=== PATIENT | female | born 1980 | race Caucasian/White ===

== ENCOUNTER 2020-04-30 19:36 | Emergency (ER) | payer MEDICAID ==
[~2020-04-30] VITALS: Ht 165.1 cm; Wt 69.0 kg
[2020-04-30] MEDS ORDERED: LORazepam 0.5 MG tablet PO PRN (20:05)
[2020-04-30 20:35] LABS: BASOPHILS % (AUTO) 0.4 % (0-1); EOSINOPHILS # (AUTO) 0.1 X10'3 (0-0.9); EOSINOPHILS % (AUTO) 1.2 % (0-6); HEMATOCRIT 43.4 % (35.0-45.0); HEMOGLOBIN 14.7 g/dl (12.0-16.0); LYMPHOCYTES % (AUTO) 25.4 % (21-51); MEAN CORPUSCULAR HEMOGLOBIN 30.1 PG (27.0-31.0); MEAN CORPUSCULAR HGB CONC 33.9 g/dL (33.0-36.5); MEAN CORPUSCULAR VOLUME 88.6 FL (78-98); MEAN PLATELET VOLUME 7.7 FL (7.4-10.4); MONOCYTES # (AUTO) 0.3 X10'3 (0-0.9); NEUTROPHILS # (AUTO) 5.4 X10'3 (1.8-7.7); PLATELET COUNT 260 X10'3 (140-440); WHITE BLOOD COUNT 7.8 X10'3 (4.5-11.0)
[2020-04-30 20:36] LABS: URINE HCG NEGATIVE (NEG)
[2020-04-30 20:43] LABS: URINE AMPHETAMINE SCREEN NEGATIVE (Neg); URINE BARBITUATE SCREEN NEGATIVE (Neg); URINE BENZODIAZEPINES SCREEN NEGATIVE (Neg); URINE CANNABINOID SCREEN NEGATIVE (Neg); URINE COCAINE SCREEN NEGATIVE (Neg); URINE METHADONE SCREEN NEGATIVE (Neg); URINE OPIATE SCREEN NEGATIVE (Neg); URINE PHENCYCLIDINE SCREEN NEGATIVE (Neg)
--- NOTE | 2020-04-30 20:43 | NUR ---
pt moved to overflow bed 24. pt ambulated with a steady gate.
[2020-04-30 20:50] LABS: ALANINE AMINOTRANSFERASE 26 U/L (12-78); ALBUMIN 4.2 G/DL (3.4-5.0); ALBUMIN/GLOBULIN RATIO 1.1 (1.1-1.5); ALKALINE PHOSPHATASE 85 IU/L (46-116); ANION GAP 8 (8-16); ASPARTATE AMINO TRANSFERASE 18 U/L (10-37); BILIRUBIN,TOTAL 0.5 MG/DL (0.1-1.0); BLOOD UREA NITROGEN 11 MG/DL (7-18); CALCIUM 8.8 MG/DL (8.5-10.1); CHLORIDE 107 MMOL/L (99-107); CREATININE 0.58 MG/DL (0.40-0.90); GLUCOSE 86 MG/DL (70-104); SODIUM 141 MMOL/L (135-145); TOTAL CARBON DIOXIDE 26.2 MMOL/L (24-32); TOTAL PROTEIN 8.1 G/DL (6.4-8.2); eGFR > 90 ML/MIN
[2020-04-30] MEDS ORDERED: ESCI20TA25 PO (20:50)
[2020-04-30 20:58] LABS: ETHANOL 0.096 GM/DL (0.0-0.010)
[2020-04-30] MEDS ORDERED: ESCITALOPRAM OXALATE 5 MG TABLET PO SCH (22:57)
--- NOTE | 2020-04-30 23:21 | NUR ---
Pt was evaluated for SI. Pt stated that her committed suicide 2 weeks ago by gunshot to chest. Pt has been "losing it ever since." Pt states that she is a good mother and has "3 good reasons to live (her daughters), but hasn't felt like living." She states that she is scared because she has never felt like this before and doesn't understand why she wants to so badly. Pt is not manic, nor psychotic. Pt was overheard on the phone stating that "if I was truthful, they'll keep me for over 72 hours."
--- NOTE | 2020-04-30 23:21 | NUR ---
pt is sleeping, was easily arousable for hs meds. pt is cooperative and polite.
--- NOTE | 2020-05-01 01:09 | NUR ---
pt is sleeping, no s/s of distress noted.
--- NOTE | 2020-05-01 02:09 | NUR ---
packet sent to [place] [facility]
--- NOTE | 2020-05-01 02:17 | NUR ---
apd called to report that pt has firearms in her home that they would like to remove. police are not able to remove firearms until 8pm on monday and would like to be notified if pt is released prior to that.
--- NOTE | 2020-05-01 02:41 | NUR ---
pt continues to sleep, no s/s of distress noted.
--- NOTE | 2020-05-01 04:52 | NUR ---
pt continues to sleep, no s/s of distress noted.
--- NOTE | 2020-05-01 07:00 | NUR ---
Resting in bed
--- NOTE | 2020-05-01 08:00 | NUR ---
Resting in bed
--- NOTE | 2020-05-01 08:30 | NUR ---
PT TEARFUL, STATING "TODAY IS ONE MONTH TO THE DAY THAT MY COMMITED SUICIDE. I WANT TO GO HOME AND EVERYTING TO BE NORMAL AGAIN". PT STATES "LOGICALLY THIS SHOULDN'T HAVE HAPPENED BUT MY EMOTIONS JUST WERE NOT WHERE THEY NEEDED TO BE. YESTERDAY WAS A HARD DAY AND TODAY IS ANOTHER HARD DAY".
--- NOTE | 2020-05-01 09:00 | NUR ---
Resting in bed
--- NOTE | 2020-05-01 10:00 | NUR ---
Resting in bed
[2020-05-01] MEDS ORDERED: LORazepam 1 MG tablet PO PRN (10:10)
--- NOTE | 2020-05-01 11:00 | NUR ---
Resting in bed
--- NOTE | 2020-05-01 12:00 | NUR ---
Resting in bed
--- NOTE | 2020-05-01 13:00 | NUR ---
Resting in bed
--- NOTE | 2020-05-01 13:20 | NUR ---
Accepted to [facility] at 1300 by Damon viveros p.u. [id number].
--- NOTE | 2020-05-01 14:00 | NUR ---
Resting in bed
--- NOTE | 2020-05-01 15:00 | NUR ---
Resting in bed
--- NOTE | 2020-05-01 15:46 | NUR ---
[facility] ETA [phone] FOR TRANSPORTATION TO [facility] [place]
--- NOTE | 2020-05-01 16:00 | NUR ---
Resting in bed
--- NOTE | 2020-05-01 17:00 | NUR ---
Resting in bed
--- NOTE | 2020-05-01 18:04 | NUR ---
Resting in bed
[2020-05-01 18:33] VITALS: BP 126/74
== END 2020-05-01 19:00 ==
LOC: ER 19:37
DX: R45.851 Suicidal ideations (principal); Z88.1 Allergy status to other antibiotic agents; Z88.6 Allergy status to analgesic agent; Z88.8 Allergy status to other drugs, medicaments and biological substances; Z79.899 Other long term (current) drug therapy
CPT/HCPCS: 36415; 80053; 80305; 80320; 81025; 84443; 85025; 99285

== ENCOUNTER 2023-12-15 08:15 | Emergency (ER) | payer MEDICAID ==
[~2023-12-15] VITALS: Ht 165.1 cm; Wt 76.8 kg
[~2023-12-15 08:15] MED LIST: ESCI20TA36 PO
[2023-12-15 08:17] VITALS: BP 123/76; PULSE 78; RESP 16; TEMP 98; O2SAT 98
== END 2023-12-15 08:54 | disposition home or self-care (01) ==
LOC: ER 08:15
DX: R09.1 Pleurisy (principal); Z88.1 Allergy status to other antibiotic agents; Z88.8 Allergy status to other drugs, medicaments and biological substances; Z79.899 Other long term (current) drug therapy
CPT/HCPCS: 99283